=== PATIENT | female | born 1955 | race Caucasian/White ===

== ENCOUNTER 2023-07-22 08:26 | Outpatient (RCR) | payer OTHER, SELFPAY | END 2023-07-22 23:59 | disposition home or self-care (01) | LOC: RPT 08:26 | PROVIDERS: ATTENDING PHYSICIAN Nurse Practitioner Adult Health | DX: S76.311D Strain of muscle, fascia and tendon of the posterior muscle group at thigh level, right thigh, subsequent encounter (principal) | CPT/HCPCS: 97110; 97162 ==

== ENCOUNTER 2023-08-26 12:55 | Outpatient (RCR) | payer OTHER, SELFPAY | END 2023-08-26 23:59 | disposition home or self-care (01) | LOC: RPT 12:55 | PROVIDERS: ATTENDING PHYSICIAN Nurse Practitioner Adult Health | DX: S76.311D Strain of muscle, fascia and tendon of the posterior muscle group at thigh level, right thigh, subsequent encounter (principal); Z73.6 Limitation of activities due to disability | CPT/HCPCS: 97010; 97110; 97140 ==

== ENCOUNTER 2023-09-01 14:00 | Outpatient (RCR) | payer OTHER, SELFPAY | END 2023-09-02 07:37 | disposition home or self-care (01) | LOC: RPT 14:00 | PROVIDERS: ATTENDING PHYSICIAN Nurse Practitioner Adult Health | DX: S76.311D Strain of muscle, fascia and tendon of the posterior muscle group at thigh level, right thigh, subsequent encounter (principal); Z73.6 Limitation of activities due to disability | CPT/HCPCS: 97010; 97110 ==

== ENCOUNTER → 2023-09-24 18:27 | Outpatient (REF) | payer OTHER, SELFPAY | LOC: MRI 18:27 | PROVIDERS: ATTENDING PHYSICIAN Internal Medicine | DX: M51.36 Other intervertebral disc degeneration, lumbar region (principal); G89.29 Other chronic pain; M54.41 Lumbago with sciatica, right side | CPT/HCPCS: 72148 ==

== ENCOUNTER → 2023-09-30 13:26 | Outpatient (REF) | payer OTHER, SELFPAY ==
[2023-09-30 14:19] LABS: % Basophils 0.3 % (0-2); % Eosinophils 2.5 % (0-6); % Immature Granulocytes 0.3 % (0-0.5); % Lymphocytes 33.9 % (20.5-51.1); % Monocytes 7.3 % (1.7-9.3); % Neutrophils 55.7 % (42.2-75.2); Absolute Eosinophils 0.2 10^3/uL (0-0.7); Absolute Lymphocytes 2.1 10^3/uL (1.2-3.4); Absolute Monocytes 0.5 10^3/uL (0.1-0.6); Absolute Neutrophils 3.5 10^3/uL (1.4-6.5); Hematocrit 42.1 % (37.0-47.0); Mean Corp Hgb Conc. 33.3 g/dL (33.0-37.0); Mean Corpuscular Volume 96.3 fL (81.0-99.0); Mean Platelet Volume 10.9 fL (7.4-10.4); Nucleated Red Blood Cells % 0 %; Platelet Count 193 10^3/uL (130-400); Red Blood Cell Count 4.37 10^6/uL (4.20-5.40); Red Cell Dist. Width 12.6 % (11.5-14.5); White Blood Cell Count 6.3 10^3/uL (4.8-10.8)
[2023-09-30 15:05] LABS: Albumin 4.5 g/dl (3.5-5.0); Blood Urea Nitrogen 19 mg/dl (7-17); Calcium 9.8 mg/dl (8.4-10.2); Carbon Dioxide 25 mmol/L (22-30); Chloride 107 mmol/L (98-107); Glucose 96 mg/dl (70-99); Phosphorus 4.7 mg/dl (2.5-4.5); Potassium 4.6 mmol/L (3.5-5.1); Sodium 140 mmol/L (135-145); eGFR > 60.00
== END ==
LOC: REG 13:26
PROVIDERS: ATTENDING PHYSICIAN Internal Medicine
DX: K86.9 Disease of pancreas, unspecified (principal); I48.0 Paroxysmal atrial fibrillation; E78.00 Pure hypercholesterolemia, unspecified; I95.1 Orthostatic hypotension; R63.4 Abnormal weight loss
CPT/HCPCS: 36415; 80069; 85025

== ENCOUNTER → 2023-10-16 19:12 | Outpatient (REF) | payer OTHER, SELFPAY | LOC: MRI 19:12 | PROVIDERS: ATTENDING PHYSICIAN Internal Medicine | DX: K86.9 Disease of pancreas, unspecified (principal) | CPT/HCPCS: 74183; A9575 ==

== ENCOUNTER → 2023-10-29 09:18 | Outpatient (REF) | payer OTHER, SELFPAY | LOC: PAVMRI 09:18 | PROVIDERS: ATTENDING PHYSICIAN Orthopaedic Surgery Orthopaedic Surgery of the Spine; FAMILY PHYSICIAN Internal Medicine | DX: M19.90 Unspecified osteoarthritis, unspecified site (principal) | CPT/HCPCS: 73721 ==

== ENCOUNTER → 2024-01-14 13:37 | Outpatient (REF) | payer OTHER, SELFPAY | LOC: HWRAD 13:37 | PROVIDERS: ATTENDING PHYSICIAN Family Medicine | DX: M25.561 Pain in right knee (principal); M25.562 Pain in left knee | CPT/HCPCS: 73564 ==

== ENCOUNTER → 2024-04-01 14:33 | Outpatient (REF) | payer OTHER, SELFPAY | LOC: MRI 3T 14:33 | PROVIDERS: ATTENDING PHYSICIAN Internal Medicine Gastroenterology; FAMILY PHYSICIAN Internal Medicine | DX: K86.2 Cyst of pancreas (principal) | CPT/HCPCS: 74183; A9575 ==

== ENCOUNTER → 2024-10-17 09:44 | Outpatient (REF) | payer MEDICARE, SELFPAY | LOC: HWWDC 09:44 | PROVIDERS: ATTENDING PHYSICIAN Internal Medicine; REFERRING PHYSICIAN Obstetrics & Gynecology Gynecology | DX: Z12.31 Encounter for screening mammogram for malignant neoplasm of breast (principal) | CPT/HCPCS: 77063; 77067 ==

== ENCOUNTER → 2024-10-22 12:57 | Outpatient (REF) | payer MEDICARE, SELFPAY | LOC: MRI 3T 12:57 | PROVIDERS: ATTENDING PHYSICIAN Student in an Organized Health Care Education/Training Program; FAMILY PHYSICIAN Internal Medicine | DX: M79.671 Pain in right foot (principal) | CPT/HCPCS: 73718 ==

== ENCOUNTER 2025-03-24 13:25 | Outpatient (RCR) | payer MEDICARE, SELFPAY | END 2025-03-24 23:59 | disposition home or self-care (01) | LOC: RPT 13:25 | PROVIDERS: ATTENDING PHYSICIAN Internal Medicine | DX: M54.41 Lumbago with sciatica, right side (principal); Z73.6 Limitation of activities due to disability; M79.604 Pain in right leg | CPT/HCPCS: 97010; 97110; 97140; 97162 ==

== ENCOUNTER 2025-04-24 13:49 | Outpatient (RCR) | payer MEDICARE, SELFPAY | END 2025-04-24 23:59 | disposition home or self-care (01) | LOC: RPT 13:49 | PROVIDERS: ATTENDING PHYSICIAN Internal Medicine | DX: M54.41 Lumbago with sciatica, right side (principal); Z73.6 Limitation of activities due to disability; M79.604 Pain in right leg | CPT/HCPCS: 97010; 97110; 97140 ==

== ENCOUNTER 2025-05-02 09:23 | Outpatient (RCR) | payer MEDICARE, SELFPAY | END 2025-05-03 07:04 | disposition home or self-care (01) | LOC: RPT 09:23 | PROVIDERS: ATTENDING PHYSICIAN Internal Medicine | DX: M54.41 Lumbago with sciatica, right side (principal); Z73.6 Limitation of activities due to disability; M79.604 Pain in right leg | CPT/HCPCS: 97110 ==

== ENCOUNTER → 2025-05-10 13:51 | Outpatient (REF) | payer MEDICARE, SELFPAY | LOC: HWRAD 13:51 | PROVIDERS: ATTENDING PHYSICIAN Internal Medicine Cardiovascular Disease; FAMILY PHYSICIAN Internal Medicine | DX: I48.0 Paroxysmal atrial fibrillation (principal); R00.1 Bradycardia, unspecified; R06.02 Shortness of breath; E78.00 Pure hypercholesterolemia, unspecified | CPT/HCPCS: 75571 ==

== ENCOUNTER → 2025-06-19 15:38 | Outpatient (REF) | payer MEDICARE, SELFPAY | LOC: MRI 3T 15:38 | PROVIDERS: ATTENDING PHYSICIAN Internal Medicine | DX: Z00.00 Encounter for general adult medical examination without abnormal findings (principal) | CPT/HCPCS: 74183; A9575 ==